=== PATIENT | female | born 1945 | race Caucasian/White ===

== ENCOUNTER 2017-03-19 06:16 | Day surgery (SDC) | payer MEDICARE ==
[~2017-03-19 06:16] MED LIST: Lactated Ringers 1,000 ML IV SCH
[2017-03-19] MEDS ORDERED: fentaNYL 100 MCG/2 ML SDV ONE (06:56)
[2017-03-19] MEDS ORDERED: Midazolam 1 MG/ML 2 ML SDV ONE (06:56)
[2017-03-19] MEDS ORDERED: Propofol 200 MG/20 ML SDV ONE ×2 (06:56→06:57)
[2017-03-19] MEDS ORDERED: Lactated Ringers 1,000 ML IV SCH (07:00)
[2017-03-19 09:16] VITALS: BP 117/57
--- NOTE | 2017-03-19 14:13 | OR ---
DATE OF PROCEDURE: 03/19/2017 PREOPERATIVE DIAGNOSIS: Colon cancer screening. POSTOPERATIVE DIAGNOSIS: Unremarkable colonoscopy. PROCEDURE: Colonoscopy to the cecum. SURGEON: Eduin Lewis MD. ANESTHESIA: IV anesthesia with monitored anesthesia care. INDICATION: This 71-year-old white female is here for a colonoscopy for colon cancer screening. Her last colonoscopic exam she says was done 11 years ago. I counseled her for the procedure including risks and alternatives, and she gave her informed consent to proceed. PROCEDURE IN DETAIL: The patient was placed in the left lateral decubitus position. IV anesthesia was administered by the Anesthesia Service. Time-out was held. A rectal exam was performed, which was unremarkable. The flexible video Olympus colonoscope was introduced through her anus, up her rectum, out her colon all way to the cecum. It was difficult to negotiate through the sigmoid and we placed her on her back to achieve this. Once the cecum was reached, the scope was slowly withdrawn, examining the mucosa throughout. No mucosal abnormalities were noted. The scope was retroflexed in the rectum with the distal rectum appearing unremarkable. The scope was straightened and removed. She tolerated the procedure well. Eduin Lewis MD /[id number]
== END 2017-03-19 09:28 | disposition home or self-care (01) ==
LOC: JP.SDS 06:16
PROVIDERS: ATTEND Surgery
DX: Z12.11 Encounter for screening for malignant neoplasm of colon (principal); I10 Essential (primary) hypertension; Z88.8 Allergy status to other drugs, medicaments and biological substances; Z91.041 Radiographic dye allergy status
CPT/HCPCS: G0121; J2250; J2704; J3010

== ENCOUNTER 2022-05-23 17:51 | Emergency (ER) | payer MEDICARE ==
[2022-05-23 18:26] VITALS: BP 153/65; PULSE 67
[2022-05-23] MEDS ORDERED: Lidocaine 1% with EPINEPHrine 1:100,000 50 ML MDV SUBCUT STA (18:39)
[2022-05-23] MEDS ORDERED: Bacitracin Oint 1 GM U/D Packet TOP ONE (18:39)
== END 2022-05-23 19:25 | disposition home or self-care (01) ==
LOC: JP.ED 17:51
DX: S61.412A Laceration without foreign body of left hand, initial encounter (principal); I10 Essential (primary) hypertension; E03.9 Hypothyroidism, unspecified; Z91.041 Radiographic dye allergy status; Z88.8 Allergy status to other drugs, medicaments and biological substances; Z79.82 Long term (current) use of aspirin; Z79.899 Other long term (current) drug therapy; W26.8XXA Contact with other sharp object(s), not elsewhere classified, initial encounter
CPT/HCPCS: 12004; 99282